=== PATIENT | male | born 1975 | race Two or more races ===

== ENCOUNTER 2018-04-16 21:13 | Emergency (ER) | payer MEDICAID ==
[~2018-04-16] VITALS: Ht 180.3 cm; Wt 89.3 kg
[2018-04-16 21:43] VITALS: BP 117/70
== END 2018-04-16 21:53 | disposition home or self-care (01) ==
LOC: ED 21:43
DX: K64.5 Perianal venous thrombosis (principal)
CPT/HCPCS: 99283